=== PATIENT | male | born 1935 | race Caucasian/White ===

== ENCOUNTER 2017-02-28 08:23 | Inpatient (IN) | payer MEDICARE ==
[2017-02-28] VITALS (13 sets, daily range): BP systolic 80–187; BP diastolic 46–88
[~2017-02-28] VITALS: Ht 182.9 cm; Wt 86.6 kg
[~2017-02-28 08:23] MED LIST: ACET-812 PO; ASCO500C15 PO; ASPI325T8; ATOR40TA PO; CHOL10002 PO; CLIN150C2 PO; FAMO20TA8 PO; FOLI1TAB16 PO; FURO-149 PO; LOSA25TA96 PO; METH2.5T PO; NPH,100V SQ; POTA2TAB17; TRAM50TA2 PO; VITA100T5
[2017-02-28] MEDS ORDERED: ipratropium/albuterol 3ml nebule NEB ONE (08:30)
[2017-02-28] MEDS ORDERED: methylPREDNISolone sod succ 125mg/2ml vial IV ONE (08:30)
[2017-02-28] MEDS ORDERED: ipratropium/albuterol 3ml nebule ONE (08:33)
[2017-02-28] MEDS ORDERED: LORazepam 2 mg/ml vial IV ONE (08:40)
[2017-02-28 08:45] LABS: BASOPHILS % (AUTO) 0.4 % (0-1); EOSINOPHILS % (AUTO) 0.2 % (0-6); HEMATOCRIT 33.6 % (42.0-52.0); LYMPHOCYTES # (AUTO) 1.2 X10'3 (1.1-4.8); LYMPHOCYTES % (AUTO) 11.1 % (21-51); MEAN CORPUSCULAR HEMOGLOBIN 31.5 PG (27.0-31.0); MEAN CORPUSCULAR HGB CONC 32.6 % (33.0-36.5); MEAN CORPUSCULAR VOLUME 96.7 FL (78-98); MEAN PLATELET VOLUME 7.6 FL (7.4-10.4); MONOCYTES % (AUTO) 17.8 % (2-12); NEUTROPHILS # (AUTO) 7.8 X10'3 (1.8-7.7); NEUTROPHILS % (AUTO) 70.5 % (42-75); PLATELET COUNT 292 X10'3 (140-440); RED BLOOD COUNT 3.48 X10'6 (4.70-6.10); RED CELL DISTRIBUTION WIDTH 17.3 % (11.5-14.5); WHITE BLOOD COUNT 11.1 X10'3 (4.5-11.0)
[2017-02-28] MEDS ORDERED: methylPREDNISolone sod succ 125mg/2ml vial ONE (08:45)
[2017-02-28 08:50] LABS: ABG BASE EXCESS -15.2 mmol/L (-2.0-3.0); ABG HCO3 11.5 mmol/L (22.0-26.0); ABG OXYGEN SATURATION 98.4 % (95-98); ABG PH (T) 7.202 (7.350-7.450); ABG PO2 (T) 157.7 mmHg (83-108); ALLEN'S TEST Positive; FMetHb 0.1 % (0.3-1.12); FO2Hb 98.3 % (94-100); RESPIRATORY RATE 16 b/min; TOTAL HEMOGLOBIN 11.6 G/dl (14.0-18.0)
[2017-02-28 08:58] LABS: INR 1.2 INR; PARTIAL THROMBOPLASTIN TIME 33 SECONDS (22-32); PROTHROMBIN TIME 12.2 SECONDS (9.0-12.0)
[2017-02-28] MEDS ORDERED: etomidate 2mg/ml inj. IV ONE (09:00)
[2017-02-28] MEDS ORDERED: MIDAZolam 5mg/ml 2ml vial IV ONE (09:00)
[2017-02-28] MEDS ORDERED: rocuronium 10mg/ml inj IV ONE ×2 (09:00→12:00)
[2017-02-28] MEDS ORDERED: propofol 1000mg/100ml bottle 100 ML IV ONE (09:00)
[2017-02-28] MEDS ORDERED: fentaNYL/PF 50MCG/1 ML 2ML syringe IV ONE (09:00)
[2017-02-28 09:01] LABS: ALANINE AMINOTRANSFERASE 21 U/L (12-78); ALBUMIN 2.7 G/DL (3.4-5.0); ALBUMIN/GLOBULIN RATIO 0.5 (1.1-1.5); ALKALINE PHOSPHATASE 81 IU/L (46-116); ANION GAP 19 (8-16); ASPARTATE AMINO TRANSFERASE 26 U/L (10-37); BILIRUBIN,TOTAL 0.6 MG/DL (0.1-1.0); BLOOD UREA NITROGEN 93 MG/DL (7-18); BUN/CREATININE RATIO 15.1 (5.4-32.0); CALCIUM 9.9 MG/DL (8.5-10.1); CHLORIDE 99 MMOL/L (99-107); CREATININE 6.17 MG/DL (0.60-1.10); GLUCOSE 207 MG/DL (70-104); POTASSIUM 5.4 MMOL/L (3.5-5.1); SODIUM 133 MMOL/L (135-145); TOTAL PROTEIN 8.2 G/DL (6.4-8.2); eGFR 9 ML/MIN
[2017-02-28 09:37] LABS: TOTAL CELLS COUNTED 100
[2017-02-28 09:38] LABS: ANISOCYTOSIS 1+; PLATELET ESTIMATE NORMAL; POLYCHROMASIA FEW; ROULEAUX 1+; TOXIC GRANULATION 3+
[2017-02-28] MEDS ORDERED: piperacillin/tazo 3.375gm/50ml 50 ML IV ONE (09:50)
[2017-02-28] MEDS ORDERED: normal saline 1000ML IV soln IV ONE (09:50)
[2017-02-28] MEDS ORDERED: vancomycin/NS 1 GM ADD-VANTAGE 250 ML IV ONE (09:50)
[2017-02-28 10:12] LABS: MAGNESIUM 1.8 MG/DL (1.5-2.4)
[2017-02-28] MEDS: K, MAG and/or Phos replacement - Verify level? MC SCH (10:35)
[2017-02-28] MEDS ORDERED: ondansetron/PF 4mg/2ml inj IV PRN (10:35)
[2017-02-28] MEDS ORDERED: potassium Cl 20 mEq SR tablet PO PRN ×2 (10:35)
[2017-02-28] MEDS ORDERED: magnesium hydroxide 30ml (MOM) UD suspension PO PRN ×2 (10:35→10:50)
[2017-02-28] MEDS ORDERED: acetaminophen 325mg tablet PO PRN ×3 (10:35→10:50)
[2017-02-28] MEDS ORDERED: levoFLOXACIN-Levaquin 500mg/D5 100 ML IV ONE (10:35)
[2017-02-28 10:40] LABS: ABG BASE EXCESS -16.8 mmol/L (-2.0-3.0); ABG HCO3 13.5 mmol/L (22.0-26.0); ABG OXYGEN SATURATION 97.7 % (95-98); ABG PH (T) 7.042 (7.350-7.450); ABG PO2 (T) 141.8 mmHg (83-108); ALLEN'S TEST Positive; FMetHb 0.3 % (0.3-1.12); FO2Hb 97.4 % (94-100); TOTAL HEMOGLOBIN 12.2 G/dl (14.0-18.0)
[2017-02-28] MEDS ORDERED: normal saline 1000ML IV soln IVB ONE (10:45)
[2017-02-28] MEDS ORDERED: ipratropium/albuterol 3ml nebule NEB PRN (10:50)
[2017-02-28] MEDS ORDERED: METH2.5T PO (10:54)
[2017-02-28 11:29] LABS: CLARITY,URINE CLOUDY (Clear); COLOR,URINE YELLOW (Yellow); GLUCOSE, URINE NEGATIVE (Neg); KETONES,URINE NEGATIVE (Neg); LEUKOCYTE ESTERASE ,URINE NEGATIVE (Neg); NITRITES, URINE NEGATIVE (Neg); OCCULT BLOOD,URINE MODERATE (Neg); PH,URINE 5.5 (4.8-8.0); PROTEIN,URINE 100 mg/dl (Neg); UROBILINOGEN,URINE 0.2 E.U/dL (0.2-1.0)
[2017-02-28 11:30] LABS: UA COLLECTION TYPE VOIDED
[2017-02-28 11:36] LABS: AMORPHOUS URATES 1+; BACTERIA,URINE NONE SEEN /HPF (Neg); RBC,URINE NONE SEEN /HPF (0-2); SQUAMOUS EPITHELIAL CELL,UR NONE SEEN /LPF (FEW); WBC,URINE 0-4 /HPF (0-4)
[2017-02-28] MEDS ORDERED: etomidate 2mg/ml inj. ONE (12:00)
[2017-02-28] MEDS ORDERED: traMADol 50MG tablet PO PRN (13:00)
[2017-02-28] MEDS ORDERED: methylPREDNISolone sod succ/PF 40mg inj. IV SCH (14:00)
[2017-02-28] MEDS: pantoprazole 40 MG vial IV SCH (15:25)
[2017-02-28] MEDS: furosemide 10 MG/1 ML 10ml inj IV SCH ×2 (15:27→20:55)
[2017-02-28] MEDS ORDERED: MESSAGE TO PHARMACY PO ONE (15:45)
[2017-02-28] MEDS ORDERED: dextrose ORAL solution 15 GM/59 ML bottle PO PRN ×2 (15:45)
[2017-02-28] MEDS ORDERED: dextrose 50%-water 50ml dispensing syringe IV PRN ×2 (15:45)
[2017-02-28] MEDS: methylPREDNISolone sod succ 125mg/2ml vial IV SCH ×2 (15:45→20:07)
[2017-02-28] MEDS ORDERED: glucagon, human recombinant 1mg kit SUBCUT PRN (15:45)
[2017-02-28] MEDS ORDERED: heparin, porcine 5000 units/ml vial SQ SCH (16:00)
[2017-02-28 16:35] LABS: HEMOGLOBIN A1C 6.1 % (4.5-6.2)
[2017-02-28] MEDS ORDERED: vancomycin/NS 500MG ADD-VANT 100 ML IV PRN (17:00)
[2017-02-28] MEDS ORDERED: vancomycin/NS 1 GM ADD-VANTAGE 250 ML IV PRN (17:00)
[2017-02-28] MEDS ORDERED: propofol 1000mg/100ml bottle 100 ML IV PRN (17:30)
[2017-02-28 17:47] LABS: CREATININE,URINE RANDOM 68.8 MG/DL
[2017-02-28] MEDS: famotidine 20mg tablet PO SCH (20:06)
[2017-02-28] MEDS: sodium bicarbonate (8.4%) inj. 50 MEQ in sodium chloride 0.45% 1,000 ML IV SCH (20:06)
[2017-02-28] MEDS: insulin Lispro (HumaLOG) vial - multi-dose SQ SCH (20:51)
[2017-02-28] MEDS: Insulin Detemir pen SQ SCH (20:52)
[2017-02-28] MEDS ORDERED: heparin 10,000 units/1 ML INJ IV PRN (22:35)
[2017-02-28] MEDS ORDERED: heparin 10,000 units/1 ML INJ IV ONE (22:35)
[2017-03-01] VITALS (30 sets, daily range): BP systolic 75–129; BP diastolic 41–71
[2017-03-01] MEDS: sodium bicarbonate (8.4%) inj. 50 MEQ in sodium chloride 0.45% 1,000 ML IV SCH ×4 (01:14→19:55)
[2017-03-01] MEDS: methylPREDNISolone sod succ 125mg/2ml vial IV SCH ×4 (01:48→19:55)
[2017-03-01] MEDS: insulin Lispro (HumaLOG) vial - multi-dose SQ SCH ×4 (01:56→20:07)
[2017-03-01] MEDS ORDERED: midodrine 5mg tablet PO ONE (02:40)
[2017-03-01] MEDS ORDERED: albumin (human) 25% 100 ML IV solution IV ONE (02:45)
[2017-03-01] MEDS: VANCOMYCIN LEVEL IV SCH (03:00)
[2017-03-01] MEDS: midazolam 100mg in NS 100ml 100 ML IV PRN (03:01)
[2017-03-01] MEDS: FENTANYL-0.9 % NACL/PF 100 ML IV PRN ×2 (03:01→19:56)
[2017-03-01] MEDS ORDERED: normal saline 250ml IV soln 250 ML IV ONE ×2 (04:20→04:35)
[2017-03-01 04:26] LABS: ABG BASE EXCESS -10.4 mmol/L (-2.0-3.0); ABG HCO3 15.5 mmol/L (22.0-26.0); ABG OXYGEN SATURATION 98.7 % (95-98); ABG PCO2 (T) 32.6 mmHg (35.0-48.0); ABG PH (T) 7.289 (7.350-7.450); ABG PO2 (T) 149.2 mmHg (83-108); FCOHb 0.3 % (0.5-1.5); FMetHb 0.2 % (0.3-1.12); FO2Hb 98.2 % (94-100); MINUTE VOLUME 10 L/min; PATIENT TEMPERATURE 35.7; PEEP 5 cm H2O; RESPIRATORY RATE 16 b/min; RESPIRATORY RATE (OBSERVED) 16 b/min; TIDAL VOLUME 500 mL; TOTAL HEMOGLOBIN 8.5 G/dl (14.0-18.0)
[2017-03-01 06:42] LABS: INR 1.2 INR; PROTHROMBIN TIME 12.8 SECONDS (9.0-12.0)
[2017-03-01 06:46] LABS: ALANINE AMINOTRANSFERASE 20 U/L (12-78); ALBUMIN 2.5 G/DL (3.4-5.0); ALBUMIN/GLOBULIN RATIO 0.7 (1.1-1.5); ALKALINE PHOSPHATASE 40 IU/L (46-116); ANION GAP 16 (8-16); ASPARTATE AMINO TRANSFERASE 24 U/L (10-37); BILIRUBIN,TOTAL 0.5 MG/DL (0.1-1.0); BLOOD UREA NITROGEN 104 MG/DL (7-18); BUN/CREATININE RATIO 18.1 (5.4-32.0); CALCIUM 8.5 MG/DL (8.5-10.1); CHLORIDE 104 MMOL/L (99-107); CREATININE 5.75 MG/DL (0.60-1.10); GLUCOSE 173 MG/DL (70-104); PHOSPHORUS 6.6 MG/DL (2.3-4.5); POTASSIUM 4.6 MMOL/L (3.5-5.1); SODIUM 138 MMOL/L (135-145); TOTAL CARBON DIOXIDE 18.4 MMOL/L (24-32); TOTAL PROTEIN 6.2 G/DL (6.4-8.2); VANCOMYCIN,RANDOM 9.5 UG/ML; eGFR 10 ML/MIN
[2017-03-01 06:53] LABS: BASOPHILS % (AUTO) 0 % (0-1); EOSINOPHILS % (AUTO) 0.1 % (0-6); HEMOGLOBIN 7.2 g/dl (14.0-17.9); LYMPHOCYTES # (AUTO) 0.4 X10'3 (1.1-4.8); LYMPHOCYTES % (AUTO) 9.2 % (21-51); MEAN CORPUSCULAR HEMOGLOBIN 31.5 PG (27.0-31.0); MEAN CORPUSCULAR HGB CONC 32.9 % (33.0-36.5); MEAN CORPUSCULAR VOLUME 95.8 FL (78-98); MEAN PLATELET VOLUME 7.3 FL (7.4-10.4); MONOCYTES # (AUTO) 0.4 X10'3 (0-0.9); MONOCYTES % (AUTO) 9.4 % (2-12); NEUTROPHILS # (AUTO) 3.6 X10'3 (1.8-7.7); NEUTROPHILS % (AUTO) 81.3 % (42-75); PLATELET COUNT 175 X10'3 (140-440); RED BLOOD COUNT 2.28 X10'6 (4.70-6.10); RED CELL DISTRIBUTION WIDTH 16.9 % (11.5-14.5); WHITE BLOOD COUNT 4.4 X10'3 (4.5-11.0)
[2017-03-01 07:05] LABS: HEMATOCRIT 21.8 % (42.0-52.0)
[2017-03-01] MEDS: famotidine 20mg tablet PO SCH (08:00)
[2017-03-01] MEDS: losartan 25mg tablet PO SCH (08:00)
[2017-03-01] MEDS: furosemide 10 MG/1 ML 10ml inj IV SCH (08:00)
[2017-03-01] MEDS: K, MAG and/or Phos replacement - Verify level? MC SCH (08:00)
[2017-03-01] MEDS: metroNIDAZOLE-Flagyl 500mg/NS 100 ML IV SCH ×2 (08:30→19:56)
[2017-03-01] MEDS: pantoprazole 40 MG vial IV SCH (08:30)
[2017-03-01] MEDS: methylnaltrexone br 12mg/0.6ml inj***SubQ only SQ SCH (08:31)
[2017-03-01] MEDS ORDERED: vancomycin/NS 1 GM ADD-VANTAGE 250 ML IV PRN (08:55)
[2017-03-01] MEDS ORDERED: vancomycin/NS 500MG ADD-VANT 100 ML IV PRN (08:55)
[2017-03-01 08:56] LABS: TROPONIN I 2.04 NG/ML (0.0-0.05)
[2017-03-01] MEDS ORDERED: vancomycin/NS 1 GM ADD-VANTAGE 250 ML IV ONE (09:35)
[2017-03-01] MEDS ORDERED: pneumococcal 23-VAL P-sac vacc 25 mcg/0.5ml vial IMVAC ONE (10:00)
[2017-03-01] MEDS ORDERED: FLU VACC QS2017-18 36MOS UP/PF 60 MCG/0.5 ML SYRINGE IMVAC ONE (10:00)
[2017-03-01 14:09] LABS: HEMATOCRIT 27.6 % (42.0-52.0); HEMOGLOBIN 9.1 g/dl (14.0-17.9); MEAN CORPUSCULAR HEMOGLOBIN 30.6 PG (27.0-31.0); MEAN CORPUSCULAR HGB CONC 32.9 % (33.0-36.5); MEAN PLATELET VOLUME 7.7 FL (7.4-10.4); PLATELET COUNT 167 X10'3 (140-440); RED BLOOD COUNT 2.97 X10'6 (4.70-6.10); RED CELL DISTRIBUTION WIDTH 17.6 % (11.5-14.5); WHITE BLOOD COUNT 7.2 X10'3 (4.5-11.0)
[2017-03-01] MEDS ORDERED: normal saline 1000ml 1,000 ML IVB ONE (14:57)
[2017-03-01] MEDS: lactobacillus rhamnosus 10,000 MMU CELLS/CAPSULE PO SCH (16:59)
[2017-03-01] MEDS: famotidine/PF 10 mg/ml inj IV SCH (19:55)
[2017-03-01] MEDS: Insulin Detemir pen SQ SCH (20:09)
[2017-03-02] VITALS (23 sets, daily range): BP systolic 84–183; BP diastolic 47–83
[2017-03-02] MEDS: VANCOMYCIN LEVEL IV SCH (03:00)
[2017-03-02] MEDS: methylPREDNISolone sod succ 125mg/2ml vial IV SCH ×4 (03:08→20:08)
[2017-03-02] MEDS: insulin Lispro (HumaLOG) vial - multi-dose SQ SCH ×4 (03:10→20:27)
[2017-03-02 03:47] LABS: BASOPHILS % (AUTO) 0.1 % (0-1); EOSINOPHILS # (AUTO) 0.1 X10'3 (0-0.9); EOSINOPHILS % (AUTO) 1.1 % (0-6); HEMATOCRIT 28.4 % (42.0-52.0); HEMOGLOBIN 9.4 g/dl (14.0-17.9); LYMPHOCYTES # (AUTO) 0.4 X10'3 (1.1-4.8); LYMPHOCYTES % (AUTO) 4.7 % (21-51); MEAN CORPUSCULAR HEMOGLOBIN 30.8 PG (27.0-31.0); MEAN CORPUSCULAR HGB CONC 33.1 % (33.0-36.5); MEAN CORPUSCULAR VOLUME 92.9 FL (78-98); MEAN PLATELET VOLUME 7.9 FL (7.4-10.4); MONOCYTES # (AUTO) 0.3 X10'3 (0-0.9); MONOCYTES % (AUTO) 3.3 % (2-12); NEUTROPHILS # (AUTO) 7.1 X10'3 (1.8-7.7); NEUTROPHILS % (AUTO) 90.8 % (42-75); PLATELET COUNT 172 X10'3 (140-440); RED BLOOD COUNT 3.06 X10'6 (4.70-6.10); RED CELL DISTRIBUTION WIDTH 18.4 % (11.5-14.5); WHITE BLOOD COUNT 7.8 X10'3 (4.5-11.0)
[2017-03-02 03:56] LABS: ABG HCO3 15.9 mmol/L (22.0-26.0); ABG OXYGEN SATURATION 95.3 % (95-98); ABG PCO2 (T) 33.2 mmHg (35.0-48.0); ABG PH (T) 7.292 (7.350-7.450); ABG PO2 (T) 78.7 mmHg (83-108); FCOHb 0.3 % (0.5-1.5); FMetHb 0.1 % (0.3-1.12); FO2Hb 94.9 % (94-100); MINUTE VOLUME 9 L/min; PATIENT TEMPERATURE 35.9; PEEP 5 cm H2O; RESPIRATORY RATE 16 b/min; RESPIRATORY RATE (OBSERVED) 16 b/min; TIDAL VOLUME 500 mL; TOTAL HEMOGLOBIN 10.3 G/dl (14.0-18.0)
[2017-03-02 03:59] LABS: INR 1.2 INR; PROTHROMBIN TIME 12.7 SECONDS (9.0-12.0)
[2017-03-02 04:03] LABS: ALANINE AMINOTRANSFERASE 25 U/L (12-78); ALBUMIN 2.1 G/DL (3.4-5.0); ALBUMIN/GLOBULIN RATIO 0.6 (1.1-1.5); ALKALINE PHOSPHATASE 42 IU/L (46-116); ANION GAP 15 (8-16); ASPARTATE AMINO TRANSFERASE 25 U/L (10-37); BILIRUBIN,TOTAL 0.6 MG/DL (0.1-1.0); BLOOD UREA NITROGEN 109 MG/DL (7-18); BUN/CREATININE RATIO 20.3 (5.4-32.0); CALCIUM 8.2 MG/DL (8.5-10.1); CHLORIDE 104 MMOL/L (99-107); CREATININE 5.36 MG/DL (0.60-1.10); GLUCOSE 186 MG/DL (70-104); POTASSIUM 4.4 MMOL/L (3.5-5.1); SODIUM 138 MMOL/L (135-145); TOTAL PROTEIN 5.9 G/DL (6.4-8.2); eGFR 10 ML/MIN
[2017-03-02 04:04] LABS: PHOSPHORUS 7.1 MG/DL (2.3-4.5); VANCOMYCIN,RANDOM 17.4 UG/ML
[2017-03-02] MEDS: sodium bicarbonate (8.4%) inj. 50 MEQ in sodium chloride 0.45% 1,000 ML IV SCH ×4 (05:22→23:23)
[2017-03-02] MEDS: midazolam 100mg in NS 100ml 100 ML IV PRN (05:22)
[2017-03-02] MEDS ORDERED: atropine 0.1mg/ml 10ml syringe ONE (06:07)
[2017-03-02] MEDS: K, MAG and/or Phos replacement - Verify level? MC SCH (08:00)
[2017-03-02] MEDS: losartan 25mg tablet PO SCH (08:00)
[2017-03-02] MEDS: metroNIDAZOLE-Flagyl 500mg/NS 100 ML IV SCH ×2 (08:01→20:08)
[2017-03-02] MEDS: famotidine/PF 10 mg/ml inj IV SCH ×2 (08:01→20:08)
[2017-03-02] MEDS: lactobacillus rhamnosus 10,000 MMU CELLS/CAPSULE PO SCH ×2 (08:01→15:42)
[2017-03-02] MEDS: levoFLOXACIN-Levaquin 250mg/D5 50 ML IV SCH (08:01)
[2017-03-02] MEDS ORDERED: ipratropium/albuterol 3ml nebule NEB PRN (09:50)
[2017-03-02] MEDS ORDERED: racepinephrine 11.25mg/0.5ml nebule NEB PRN (09:50)
[2017-03-02 12:17] LABS: % IRON SATURATION 47 % (11-46); IRON 58 UG/DL (53-167); TOTAL IRON BINDING CAPACITY 123 UG/DL (259-388)
[2017-03-02] MEDS: epoetin 20,000 units/ml inj SQ SCH (13:05)
[2017-03-02] MEDS: ipratropium/albuterol 3ml nebule NEB SCH ×2 (15:13→20:02)
[2017-03-02 16:46] LABS: ABG BASE EXCESS -8.8 mmol/L (-2.0-3.0); ABG HCO3 15.6 mmol/L (22.0-26.0); ABG OXYGEN SATURATION 94.5 % (95-98); ABG PCO2 (T) 28.7 mmHg (35.0-48.0); ABG PO2 (T) 73.7 mmHg (83-108); FCOHb 0.3 % (0.5-1.5); FLOW 5 L/min; FMetHb 0.1 % (0.3-1.12); FO2Hb 94.1 % (94-100); PATIENT TEMPERATURE 36.7; TOTAL HEMOGLOBIN 12.1 G/dl (14.0-18.0)
[2017-03-02] MEDS: morphine sulfate 8 MG/ML SYRINGE IV PRN ×3 (18:00→23:24)
[2017-03-02] MEDS: Insulin Detemir pen SQ SCH (20:28)
[2017-03-03] VITALS (24 sets, daily range): BP systolic 117–177; BP diastolic 54–82
[2017-03-03] MEDS: methylPREDNISolone sod succ 125mg/2ml vial IV SCH ×4 (02:28→20:57)
[2017-03-03] MEDS: insulin Lispro (HumaLOG) vial - multi-dose SQ SCH ×2 (02:35→21:03)
[2017-03-03] MEDS: VANCOMYCIN LEVEL IV SCH (03:00)
[2017-03-03] MEDS: ipratropium/albuterol 3ml nebule NEB SCH ×4 (03:56→20:16)
[2017-03-03 04:32] LABS: BASOPHILS % (AUTO) 0 % (0-1); EOSINOPHILS # (AUTO) 0.3 X10'3 (0-0.9); EOSINOPHILS % (AUTO) 1.4 % (0-6); HEMATOCRIT 33.3 % (42.0-52.0); LYMPHOCYTES # (AUTO) 0.7 X10'3 (1.1-4.8); LYMPHOCYTES % (AUTO) 3.4 % (21-51); MEAN CORPUSCULAR HEMOGLOBIN 30.8 PG (27.0-31.0); MEAN CORPUSCULAR VOLUME 93.1 FL (78-98); MEAN PLATELET VOLUME 8.2 FL (7.4-10.4); MONOCYTES # (AUTO) 0.4 X10'3 (0-0.9); MONOCYTES % (AUTO) 1.8 % (2-12); NEUTROPHILS # (AUTO) 18.4 X10'3 (1.8-7.7); NEUTROPHILS % (AUTO) 93.4 % (42-75); PLATELET COUNT 223 X10'3 (140-440); RED BLOOD COUNT 3.58 X10'6 (4.70-6.10); RED CELL DISTRIBUTION WIDTH 18.5 % (11.5-14.5); WHITE BLOOD COUNT 19.6 X10'3 (4.5-11.0)
[2017-03-03 04:44] LABS: INR 1.4 INR; PARTIAL THROMBOPLASTIN TIME 34 SECONDS (22-32)
[2017-03-03 04:47] LABS: ALANINE AMINOTRANSFERASE 27 U/L (12-78); ALBUMIN 2.4 G/DL (3.4-5.0); ALBUMIN/GLOBULIN RATIO 0.6 (1.1-1.5); ALKALINE PHOSPHATASE 64 IU/L (46-116); ANION GAP 15 (8-16); ASPARTATE AMINO TRANSFERASE 38 U/L (10-37); BILIRUBIN,TOTAL 0.6 MG/DL (0.1-1.0); BLOOD UREA NITROGEN 122 MG/DL (7-18); BUN/CREATININE RATIO 23.1 (5.4-32.0); CALCIUM 8.4 MG/DL (8.5-10.1); CHLORIDE 106 MMOL/L (99-107); CREATININE 5.29 MG/DL (0.60-1.10); GLUCOSE 129 MG/DL (70-104); POTASSIUM 3.8 MMOL/L (3.5-5.1); SODIUM 143 MMOL/L (135-145); TOTAL PROTEIN 6.6 G/DL (6.4-8.2); eGFR 11 ML/MIN
[2017-03-03 04:48] LABS: MAGNESIUM 2.1 MG/DL (1.5-2.4); PHOSPHORUS 6.2 MG/DL (2.3-4.5); VANCOMYCIN,RANDOM 14.8 UG/ML
[2017-03-03] MEDS: morphine sulfate 8 MG/ML SYRINGE IV PRN ×3 (04:52→14:02)
[2017-03-03 05:04] LABS: TOTAL CELLS COUNTED 100
[2017-03-03 05:05] LABS: MYELOCYTES % (MANUAL) 1 % (0-0); NUCLEATED RED BLOOD CELLS 1 /100WBC (0-0)
[2017-03-03 05:06] LABS: ANISOCYTOSIS 2+; PLATELET ESTIMATE NORMAL
[2017-03-03 05:09] LABS: BURR CELLS 1+
[2017-03-03] MEDS ORDERED: vancomycin/NS 500MG ADD-VANT 100 ML IV ONE (07:25)
[2017-03-03] MEDS: lactobacillus rhamnosus 10,000 MMU CELLS/CAPSULE PO SCH ×2 (07:30→17:30)
[2017-03-03] MEDS: losartan 25mg tablet PO SCH (08:00)
[2017-03-03] MEDS: K, MAG and/or Phos replacement - Verify level? MC SCH (08:00)
[2017-03-03] MEDS: sodium bicarbonate (8.4%) inj. 50 MEQ in sodium chloride 0.45% 1,000 ML IV SCH ×2 (08:05→18:54)
[2017-03-03] MEDS: methylnaltrexone br 12mg/0.6ml inj***SubQ only SQ SCH (08:06)
[2017-03-03] MEDS: metroNIDAZOLE-Flagyl 500mg/NS 100 ML IV SCH ×2 (08:06→20:57)
[2017-03-03] MEDS: famotidine/PF 10 mg/ml inj IV SCH ×2 (08:06→20:57)
[2017-03-03] MEDS: heparin, porcine 5000 units/ml vial SQ SCH ×2 (12:23→20:57)
[2017-03-03] MEDS: Insulin Detemir pen SQ SCH (21:03)
[2017-03-04] VITALS (23 sets, daily range): BP systolic 149–191; BP diastolic 66–123
[2017-03-04] MEDS: methylPREDNISolone sod succ 125mg/2ml vial IV SCH ×4 (02:35→19:00)
[2017-03-04] MEDS: insulin Lispro (HumaLOG) vial - multi-dose SQ SCH ×3 (02:44→14:41)
[2017-03-04] MEDS: VANCOMYCIN LEVEL IV SCH (02:44)
[2017-03-04 03:05] LABS: BASOPHILS # (AUTO) 0.1 X10'3 (0-0.2); BASOPHILS % (AUTO) 0.3 % (0-1); EOSINOPHILS % (AUTO) 0 % (0-6); HEMATOCRIT 32.9 % (42.0-52.0); HEMOGLOBIN 11.1 g/dl (14.0-17.9); LYMPHOCYTES # (AUTO) 0.7 X10'3 (1.1-4.8); LYMPHOCYTES % (AUTO) 3.4 % (21-51); MEAN CORPUSCULAR HGB CONC 33.7 % (33.0-36.5); MEAN CORPUSCULAR VOLUME 92.1 FL (78-98); MEAN PLATELET VOLUME 8.2 FL (7.4-10.4); MONOCYTES # (AUTO) 0.2 X10'3 (0-0.9); MONOCYTES % (AUTO) 1.2 % (2-12); NEUTROPHILS # (AUTO) 19.1 X10'3 (1.8-7.7); NEUTROPHILS % (AUTO) 95.1 % (42-75); PLATELET COUNT 214 X10'3 (140-440); RED BLOOD COUNT 3.57 X10'6 (4.70-6.10); RED CELL DISTRIBUTION WIDTH 18.1 % (11.5-14.5); WHITE BLOOD COUNT 20.1 X10'3 (4.5-11.0)
[2017-03-04 03:14] LABS: INR 1.6 INR; PARTIAL THROMBOPLASTIN TIME 36 SECONDS (22-32); PROTHROMBIN TIME 15.9 SECONDS (9.0-12.0)
[2017-03-04] MEDS: ipratropium/albuterol 3ml nebule NEB SCH ×4 (03:15→20:11)
[2017-03-04 03:22] LABS: ALANINE AMINOTRANSFERASE 26 U/L (12-78); ALBUMIN 2.3 G/DL (3.4-5.0); ALBUMIN/GLOBULIN RATIO 0.6 (1.1-1.5); ALKALINE PHOSPHATASE 68 IU/L (46-116); ANION GAP 15 (8-16); ASPARTATE AMINO TRANSFERASE 30 U/L (10-37); BILIRUBIN,TOTAL 0.8 MG/DL (0.1-1.0); BLOOD UREA NITROGEN 122 MG/DL (7-18); BUN/CREATININE RATIO 24.6 (5.4-32.0); CALCIUM 8.2 MG/DL (8.5-10.1); CHLORIDE 109 MMOL/L (99-107); CREATININE 4.95 MG/DL (0.60-1.10); GLUCOSE 172 MG/DL (70-104); PHOSPHORUS 6.7 MG/DL (2.3-4.5); POTASSIUM 3.8 MMOL/L (3.5-5.1); SODIUM 147 MMOL/L (135-145); TOTAL CARBON DIOXIDE 23.2 MMOL/L (24-32); TOTAL PROTEIN 6.3 G/DL (6.4-8.2); VANCOMYCIN,RANDOM 16.8 UG/ML; eGFR 11 ML/MIN
[2017-03-04 03:35] LABS: ANISOCYTOSIS 2+; PLATELET ESTIMATE NORMAL; TOTAL CELLS COUNTED 100
[2017-03-04 03:36] LABS: BURR CELLS FEW
[2017-03-04] MEDS: sodium bicarbonate (8.4%) inj. 50 MEQ in sodium chloride 0.45% 1,000 ML IV SCH (03:49)
[2017-03-04] MEDS: metroNIDAZOLE-Flagyl 500mg/NS 100 ML IV SCH (07:30)
[2017-03-04] MEDS: lactobacillus rhamnosus 10,000 MMU CELLS/CAPSULE PO SCH ×2 (07:30→17:30)
[2017-03-04] MEDS: levoFLOXACIN-Levaquin 250mg/D5 50 ML IV SCH (07:30)
[2017-03-04] MEDS: famotidine/PF 10 mg/ml inj IV SCH (07:30)
[2017-03-04] MEDS: heparin, porcine 5000 units/ml vial SQ SCH ×2 (07:30→19:01)
[2017-03-04] MEDS: losartan 25mg tablet PO SCH (08:00)
[2017-03-04] MEDS: K, MAG and/or Phos replacement - Verify level? MC SCH (08:00)
[2017-03-04 09:20] LABS: ABG BASE EXCESS -3.4 mmol/L (-2.0-3.0); ABG HCO3 20.9 mmol/L (22.0-26.0); ABG OXYGEN SATURATION 93.3 % (95-98); ABG PCO2 (T) 34.8 mmHg (35.0-48.0); ABG PH (T) 7.396 (7.350-7.450); ABG PO2 (T) 72.2 mmHg (83-108); ALLEN'S TEST Positive; FCOHb 0.3 % (0.5-1.5); FLOW 2 L/min; FMetHb 0.2 % (0.3-1.12); FO2Hb 92.8 % (94-100); TOTAL HEMOGLOBIN 11.7 G/dl (14.0-18.0)
[2017-03-04] MEDS ORDERED: pneumococcal 23-VAL P-sac vacc 25 mcg/0.5ml vial IMVAC ONE (10:50)
[2017-03-04] MEDS ORDERED: FLU VACC QS2017-18 36MOS UP/PF 60 MCG/0.5 ML SYRINGE IMVAC ONE (10:50)
[2017-03-04] MEDS: Insulin Detemir pen SQ SCH (20:26)
[2017-03-05] MEDS: methylPREDNISolone sod succ 125mg/2ml vial IV SCH ×4 (01:48→20:31)
[2017-03-05] MEDS: ipratropium/albuterol 3ml nebule NEB SCH ×4 (02:27→20:29)
[2017-03-05 03:00] VITALS: BP 161/74
[2017-03-05 06:00] VITALS: BP 168/82
[2017-03-05 06:06] LABS: BASOPHILS # (AUTO) 0.1 X10'3 (0-0.2); BASOPHILS % (AUTO) 0.4 % (0-1); EOSINOPHILS # (AUTO) 0.2 X10'3 (0-0.9); EOSINOPHILS % (AUTO) 1.3 % (0-6); HEMATOCRIT 32.9 % (42.0-52.0); LYMPHOCYTES # (AUTO) 0.6 X10'3 (1.1-4.8); LYMPHOCYTES % (AUTO) 3.1 % (21-51); MEAN CORPUSCULAR HEMOGLOBIN 30.8 PG (27.0-31.0); MEAN CORPUSCULAR HGB CONC 33.3 % (33.0-36.5); MEAN CORPUSCULAR VOLUME 92.3 FL (78-98); MEAN PLATELET VOLUME 8.2 FL (7.4-10.4); MONOCYTES # (AUTO) 0.3 X10'3 (0-0.9); MONOCYTES % (AUTO) 1.8 % (2-12); NEUTROPHILS # (AUTO) 17.3 X10'3 (1.8-7.7); NEUTROPHILS % (AUTO) 93.4 % (42-75); PLATELET COUNT 209 X10'3 (140-440); RED BLOOD COUNT 3.57 X10'6 (4.70-6.10); RED CELL DISTRIBUTION WIDTH 17.9 % (11.5-14.5); WHITE BLOOD COUNT 18.5 X10'3 (4.5-11.0)
[2017-03-05 06:22] LABS: INR 1.6 INR; PARTIAL THROMBOPLASTIN TIME 34 SECONDS (22-32); PROTHROMBIN TIME 16.6 SECONDS (9.0-12.0)
[2017-03-05 06:27] LABS: ALANINE AMINOTRANSFERASE 20 U/L (12-78); ALBUMIN 2.2 G/DL (3.4-5.0); ALBUMIN/GLOBULIN RATIO 0.5 (1.1-1.5); ALKALINE PHOSPHATASE 59 IU/L (46-116); ANION GAP 15 (8-16); ASPARTATE AMINO TRANSFERASE 27 U/L (10-37); BILIRUBIN,TOTAL 0.9 MG/DL (0.1-1.0); BLOOD UREA NITROGEN 112 MG/DL (7-18); BUN/CREATININE RATIO 24.6 (5.4-32.0); CALCIUM 7.9 MG/DL (8.5-10.1); CHLORIDE 109 MMOL/L (99-107); CREATININE 4.55 MG/DL (0.60-1.10); GLUCOSE 247 MG/DL (70-104); PHOSPHORUS 6.3 MG/DL (2.3-4.5); POTASSIUM 3.9 MMOL/L (3.5-5.1); SODIUM 146 MMOL/L (135-145); TOTAL CARBON DIOXIDE 22.3 MMOL/L (24-32); TOTAL PROTEIN 6.3 G/DL (6.4-8.2); eGFR 13 ML/MIN
[2017-03-05] MEDS: epoetin 20,000 units/ml inj SQ SCH (07:27)
[2017-03-05 08:37] LABS: TOTAL CELLS COUNTED 100
[2017-03-05 08:38] LABS: ANISOCYTOSIS 2+; PLATELET ESTIMATE NORMAL
[2017-03-05 08:39] LABS: ACANTHOCYTES FEW; BURR CELLS FEW
[2017-03-05] MEDS: lactobacillus rhamnosus 10,000 MMU CELLS/CAPSULE PO SCH ×2 (09:06→17:03)
[2017-03-05] MEDS: losartan 25mg tablet PO SCH (09:09)
[2017-03-05] MEDS: heparin, porcine 5000 units/ml vial SQ SCH ×2 (09:10→20:31)
[2017-03-05] MEDS: methylnaltrexone br 12mg/0.6ml inj***SubQ only SQ SCH (09:12)
[2017-03-05] MEDS: insulin Lispro (HumaLOG) vial - multi-dose SQ SCH ×3 (09:17→18:38)
[2017-03-05 11:00] VITALS: BP 162/82
[2017-03-05 15:00] VITALS: BP 156/81
[2017-03-05 19:00] VITALS: BP 171/78
[2017-03-05] MEDS: Insulin Detemir pen SQ SCH (21:10)
[2017-03-05 23:00] VITALS: BP 141/58
[2017-03-05] MEDS: LORazepam 2 mg/ml vial IV PRN (23:34)
[2017-03-06] MEDS: methylPREDNISolone sod succ 125mg/2ml vial IV SCH ×4 (01:55→20:09)
[2017-03-06] MEDS: ipratropium/albuterol 3ml nebule NEB SCH ×4 (02:49→20:53)
[2017-03-06 03:00] VITALS: BP 145/65
[2017-03-06 05:48] LABS: BASOPHILS % (AUTO) 0.1 % (0-1); EOSINOPHILS % (AUTO) 0 % (0-6); HEMATOCRIT 34.1 % (42.0-52.0); HEMOGLOBIN 11.3 g/dl (14.0-17.9); LYMPHOCYTES # (AUTO) 0.5 X10'3 (1.1-4.8); LYMPHOCYTES % (AUTO) 2.7 % (21-51); MEAN CORPUSCULAR HEMOGLOBIN 30.6 PG (27.0-31.0); MEAN CORPUSCULAR HGB CONC 33.3 % (33.0-36.5); MEAN PLATELET VOLUME 8.3 FL (7.4-10.4); MONOCYTES # (AUTO) 0.1 X10'3 (0-0.9); MONOCYTES % (AUTO) 0.6 % (2-12); NEUTROPHILS # (AUTO) 17.2 X10'3 (1.8-7.7); NEUTROPHILS % (AUTO) 96.6 % (42-75); PLATELET COUNT 197 X10'3 (140-440); RED BLOOD COUNT 3.71 X10'6 (4.70-6.10); WHITE BLOOD COUNT 17.8 X10'3 (4.5-11.0)
[2017-03-06 06:05] LABS: INR 1.5 INR; PARTIAL THROMBOPLASTIN TIME 33 SECONDS (22-32); PROTHROMBIN TIME 15.4 SECONDS (9.0-12.0)
[2017-03-06 06:17] LABS: ALANINE AMINOTRANSFERASE 25 U/L (12-78); ALBUMIN 2.4 G/DL (3.4-5.0); ALBUMIN/GLOBULIN RATIO 0.6 (1.1-1.5); ALKALINE PHOSPHATASE 63 IU/L (46-116); ANION GAP 16 (8-16); ASPARTATE AMINO TRANSFERASE 32 U/L (10-37); BLOOD UREA NITROGEN 112 MG/DL (7-18); BUN/CREATININE RATIO 25.8 (5.4-32.0); CHLORIDE 108 MMOL/L (99-107); CREATININE 4.34 MG/DL (0.60-1.10); GLUCOSE 288 MG/DL (70-104); PHOSPHORUS 6.4 MG/DL (2.3-4.5); POTASSIUM 3.5 MMOL/L (3.5-5.1); SODIUM 146 MMOL/L (135-145); TOTAL CARBON DIOXIDE 21.7 MMOL/L (24-32); TOTAL PROTEIN 6.7 G/DL (6.4-8.2); eGFR 13 ML/MIN
[2017-03-06 06:35] VITALS: BP 181/86
[2017-03-06] MEDS: heparin, porcine 5000 units/ml vial SQ SCH ×2 (08:00→20:09)
[2017-03-06 08:04] LABS: TOTAL CELLS COUNTED 100
[2017-03-06 08:05] LABS: ANISOCYTOSIS 2+; PLATELET ESTIMATE NORMAL; POIKILOCYTOSIS 1+; POLYCHROMASIA 1+; TOXIC GRANULATION 2+
[2017-03-06] MEDS: lactobacillus rhamnosus 10,000 MMU CELLS/CAPSULE PO SCH ×2 (09:16→18:30)
[2017-03-06] MEDS: LORazepam 2 mg/ml vial IV PRN ×2 (09:16→19:55)
[2017-03-06] MEDS: losartan 25mg tablet PO SCH (09:17)
[2017-03-06] MEDS: insulin Lispro (HumaLOG) vial - multi-dose SQ SCH ×2 (09:27→22:29)
[2017-03-06] MEDS: levoFLOXACIN-Levaquin 250mg/D5 50 ML IV SCH (09:36)
[2017-03-06 11:00] VITALS: BP 158/76
[2017-03-06 19:00] VITALS: BP 146/92
[2017-03-06] MEDS: Insulin Detemir pen SQ SCH (22:31)
[2017-03-06 23:00] VITALS: BP 165/79
[2017-03-07] MEDS: methylPREDNISolone sod succ 125mg/2ml vial IV SCH ×4 (02:22→19:35)
[2017-03-07 03:00] VITALS: BP 114/66
[2017-03-07] MEDS: ipratropium/albuterol 3ml nebule NEB SCH ×4 (03:00→20:25)
[2017-03-07] MEDS: LORazepam 2 mg/ml vial IV PRN ×2 (03:58→19:56)
[2017-03-07 05:00] LABS: BASOPHILS % (AUTO) 0 % (0-1); EOSINOPHILS # (AUTO) 0.2 X10'3 (0-0.9); EOSINOPHILS % (AUTO) 1.5 % (0-6); HEMATOCRIT 34.6 % (42.0-52.0); HEMOGLOBIN 11.4 g/dl (14.0-17.9); LYMPHOCYTES # (AUTO) 0.4 X10'3 (1.1-4.8); LYMPHOCYTES % (AUTO) 3.2 % (21-51); MEAN CORPUSCULAR HEMOGLOBIN 30.7 PG (27.0-31.0); MEAN CORPUSCULAR VOLUME 93.1 FL (78-98); MEAN PLATELET VOLUME 8.3 FL (7.4-10.4); MONOCYTES # (AUTO) 0.2 X10'3 (0-0.9); MONOCYTES % (AUTO) 1.3 % (2-12); PLATELET COUNT 185 X10'3 (140-440); RED BLOOD COUNT 3.72 X10'6 (4.70-6.10); RED CELL DISTRIBUTION WIDTH 18.1 % (11.5-14.5); WHITE BLOOD COUNT 13.8 X10'3 (4.5-11.0)
[2017-03-07 06:35] VITALS: BP 147/38
[2017-03-07 07:26] LABS: INR 1.5 INR; PARTIAL THROMBOPLASTIN TIME 33 SECONDS (22-32); PROTHROMBIN TIME 15.1 SECONDS (9.0-12.0)
[2017-03-07 07:35] LABS: ALANINE AMINOTRANSFERASE 32 U/L (12-78); ALBUMIN 2.4 G/DL (3.4-5.0); ALBUMIN/GLOBULIN RATIO 0.6 (1.1-1.5); ALKALINE PHOSPHATASE 60 IU/L (46-116); ANION GAP 11 (8-16); ASPARTATE AMINO TRANSFERASE 32 U/L (10-37); BILIRUBIN,TOTAL 0.9 MG/DL (0.1-1.0); BLOOD UREA NITROGEN 106 MG/DL (7-18); BUN/CREATININE RATIO 27.4 (5.4-32.0); CALCIUM 8.3 MG/DL (8.5-10.1); CHLORIDE 112 MMOL/L (99-107); CREATININE 3.87 MG/DL (0.60-1.10); GLUCOSE 260 MG/DL (70-104); MAGNESIUM 2.1 MG/DL (1.5-2.4); PHOSPHORUS 5.9 MG/DL (2.3-4.5); POTASSIUM 4.1 MMOL/L (3.5-5.1); SODIUM 150 MMOL/L (135-145); TOTAL CARBON DIOXIDE 27.2 MMOL/L (24-32); TOTAL PROTEIN 6.5 G/DL (6.4-8.2); eGFR 15 ML/MIN
[2017-03-07] MEDS: losartan 25mg tablet PO SCH (07:55)
[2017-03-07] MEDS: lactobacillus rhamnosus 10,000 MMU CELLS/CAPSULE PO SCH ×2 (07:55→17:44)
[2017-03-07] MEDS: heparin, porcine 5000 units/ml vial SQ SCH ×2 (07:55→19:36)
[2017-03-07] MEDS: methylnaltrexone br 12mg/0.6ml inj***SubQ only SQ SCH (08:00)
[2017-03-07] MEDS: epoetin 20,000 units/ml inj SQ SCH (08:00)
[2017-03-07] MEDS: insulin Lispro (HumaLOG) vial - multi-dose SQ SCH ×3 (09:26→19:35)
[2017-03-07 11:00] VITALS: BP 175/87
[2017-03-07 15:00] VITALS: BP 141/76
[2017-03-07 19:00] VITALS: BP 118/74
[2017-03-07] MEDS: Insulin Detemir pen SQ SCH (21:36)
[2017-03-07 23:00] VITALS: BP 162/65
[2017-03-08] VITALS (8 sets, daily range): BP systolic 151–182; BP diastolic 65–119
[2017-03-08] MEDS: methylPREDNISolone sod succ 125mg/2ml vial IV SCH ×4 (01:34→20:10)
[2017-03-08] MEDS: ipratropium/albuterol 3ml nebule NEB SCH ×4 (02:25→20:01)
[2017-03-08] MEDS: insulin Lispro (HumaLOG) vial - multi-dose SQ SCH ×2 (08:36→17:41)
[2017-03-08] MEDS: losartan 25mg tablet PO SCH (08:37)
[2017-03-08] MEDS: heparin, porcine 5000 units/ml vial SQ SCH ×2 (08:38→20:10)
[2017-03-08] MEDS: levoFLOXACIN-Levaquin 250mg/D5 50 ML IV SCH (08:38)
[2017-03-08] MEDS: lactobacillus rhamnosus 10,000 MMU CELLS/CAPSULE PO SCH ×2 (08:38→17:11)
[2017-03-08] MEDS ORDERED: LORazepam 2 mg/ml vial IV PRN (20:10)
[2017-03-08] MEDS: Insulin Detemir pen SQ SCH (21:38)
[2017-03-09] MEDS: methylPREDNISolone sod succ 125mg/2ml vial IV SCH ×3 (02:07→13:05)
[2017-03-09 03:00] VITALS: BP 151/83
[2017-03-09] MEDS: ipratropium/albuterol 3ml nebule NEB SCH ×2 (03:05→08:35)
[2017-03-09 06:00] VITALS: BP 132/96
[2017-03-09] MEDS: epoetin 20,000 units/ml inj SQ SCH (08:00)
[2017-03-09] MEDS: methylnaltrexone br 12mg/0.6ml inj***SubQ only SQ SCH (08:00)
[2017-03-09] MEDS: lactobacillus rhamnosus 10,000 MMU CELLS/CAPSULE PO SCH (08:20)
[2017-03-09] MEDS: losartan 25mg tablet PO SCH (08:21)
[2017-03-09 09:21] LABS: BASOPHILS % (AUTO) 0.2 % (0-1); EOSINOPHILS % (AUTO) 0 % (0-6); HEMATOCRIT 36.3 % (42.0-52.0); LYMPHOCYTES # (AUTO) 0.4 X10'3 (1.1-4.8); LYMPHOCYTES % (AUTO) 3.6 % (21-51); MEAN CORPUSCULAR HEMOGLOBIN 30.4 PG (27.0-31.0); MEAN CORPUSCULAR HGB CONC 33.1 % (33.0-36.5); MEAN PLATELET VOLUME 9.1 FL (7.4-10.4); MONOCYTES # (AUTO) 0.1 X10'3 (0-0.9); NEUTROPHILS # (AUTO) 11.4 X10'3 (1.8-7.7); NEUTROPHILS % (AUTO) 95.2 % (42-75); PLATELET COUNT 162 X10'3 (140-440); RED BLOOD COUNT 3.94 X10'6 (4.70-6.10); RED CELL DISTRIBUTION WIDTH 17.4 % (11.5-14.5); WHITE BLOOD COUNT 11.9 X10'3 (4.5-11.0)
[2017-03-09] MEDS: heparin, porcine 5000 units/ml vial SQ SCH (10:27)
[2017-03-09 11:10] LABS: ALANINE AMINOTRANSFERASE 38 U/L (12-78); ALBUMIN 2.5 G/DL (3.4-5.0); ALBUMIN/GLOBULIN RATIO 0.6 (1.1-1.5); ALKALINE PHOSPHATASE 70 IU/L (46-116); ANION GAP 7 (8-16); ASPARTATE AMINO TRANSFERASE 34 U/L (10-37); BILIRUBIN,TOTAL 1.1 MG/DL (0.1-1.0); BLOOD UREA NITROGEN 89 MG/DL (7-18); BUN/CREATININE RATIO 29.2 (5.4-32.0); CALCIUM 7.9 MG/DL (8.5-10.1); CHLORIDE 107 MMOL/L (99-107); CREATININE 3.05 MG/DL (0.60-1.10); GLUCOSE 209 MG/DL (70-104); MAGNESIUM 1.6 MG/DL (1.5-2.4); POTASSIUM 3.7 MMOL/L (3.5-5.1); SODIUM 144 MMOL/L (135-145); TOTAL CARBON DIOXIDE 29.8 MMOL/L (24-32); TOTAL PROTEIN 6.5 G/DL (6.4-8.2); eGFR 20 ML/MIN
[2017-03-09] MEDS: insulin Lispro (HumaLOG) vial - multi-dose SQ SCH (13:07)
== END 2017-03-09 14:50 | DRG 871 ==
LOC: ER 08:24 → ED HOLD 10:35 → UNDOADMIN 10:35 → EDBEDREQ 10:56 → ICU 2S 11:27 → PCU 3S 03-04 21:42
PROVIDERS: ADMIT Internal Medicine Critical Care Medicine; ATTEND Family Medicine
PROC: 5A1945Z Respiratory Ventilation, 24-96 Consecutive Hours (ICD-10-PCS; principal; 2017-02-28)
PROC: 02HV33Z Insertion of Infusion Device into Superior Vena Cava, Percutaneous Approach (ICD-10-PCS; 2017-02-28)
PROC: B548ZZA Ultrasonography of Superior Vena Cava, Guidance (ICD-10-PCS; 2017-02-28)
PROC: 0BH17EZ Insertion of Endotracheal Airway into Trachea, Via Natural or Artificial Opening (ICD-10-PCS; 2017-02-28)
PROC: 30233N1 Transfusion of Nonautologous Red Blood Cells into Peripheral Vein, Percutaneous Approach (ICD-10-PCS; 2017-03-01)
PROC: 5A09357 Assistance with Respiratory Ventilation, Less than 24 Consecutive Hours, Continuous Positive Airway Pressure (ICD-10-PCS; 2017-03-03)
PROC: 5A09357 Assistance with Respiratory Ventilation, Less than 24 Consecutive Hours, Continuous Positive Airway Pressure (ICD-10-PCS; 2017-03-04)
DX: A41.3 Sepsis due to Hemophilus influenzae (principal); J96.01 Acute respiratory failure with hypoxia; E43 Unspecified severe protein-calorie malnutrition; R65.21 Severe sepsis with septic shock; E87.4 Mixed disorder of acid-base balance; N17.9 Acute kidney failure, unspecified; J18.9 Pneumonia, unspecified organism; E87.0 Hyperosmolality and hypernatremia; N18.4 Chronic kidney disease, stage 4 (severe); E11.22 Type 2 diabetes mellitus with diabetic chronic kidney disease; J44.0 Chronic obstructive pulmonary disease with (acute) lower respiratory infection; C44.90 Unspecified malignant neoplasm of skin, unspecified; D64.9 Anemia, unspecified; J44.1 Chronic obstructive pulmonary disease with (acute) exacerbation; M06.9 Rheumatoid arthritis, unspecified; Z79.899 Other long term (current) drug therapy; Z68.25 Body mass index [BMI] 25.0-25.9, adult
CPT/HCPCS: 36415; 36556; 36600; 71010; 71250; 74176; 76700; 80053; 80202; 81001; 82570; 82803; 82948; 83036; 83540; 83550; 83605; 83735; 83880; 84100; 84145; 84156; 84300; 84484; 84540; 85018; 85025; 85027; 85610; 85730; 86885; 86900; 86901; 86920; 87040; 87070; 87077; 87185; 87502; 87503; 92616; 93005; 93306; 94002; 94003; 94640; 94660; 94760; 96374; 96375; 97110; 97161; 97530; 99291; A4649; A6209; A6212; A6213; A6223; A6257; A6258; A6446; A6449; C1751; C1758; C9113; J0461; J0885; J1644; J1940; J1956; J2060; J2212; J2250; J2270; J2543; J2704; J2930; J3010; J3370; J3490; J7030; P9016; P9047; Q2037